=== PATIENT | male | born 1960 | race Caucasian/White ===

== ENCOUNTER 2021-02-15 20:06 | Emergency (ER) | payer MEDICARE, OTHER ==
[~2021-02-15 20:06] MED LIST: AEROCHAMBER1 EA XX; ASPIR 8181 MG PO; BRILINTA 90 MG90 MG PO; BUSPIRONE HCL7.5 MG PO; CRESTOR 10 MG T10 MG PO; ESCITALOPRAM OX20 MG PO; IMDUR ER TAB 6060 MG PO; LANTUS SOL100 UNIT/1 SQ; LEXAPRO20 MG PO; LIPITOR TAB 2020 MG PO; LISINOPRIL10 MG PO; METOPROLOL TART25 MG PO; NEURONTIN 100100 MG PO; NITROSTAT0.4 MG SL; NORVASC10 MG PO; NOVOLIN 70100 UNIT/1 SQ; NOVOLOG FL100 UNIT/1 SQ; PANTOPRAZOLE SO40 MG PO; PLAVIX 75 MG TA75 MG PO; PRINIVIL5 MG PO; PROVENTIL HFA6.7 GM INH; RANEXA1000 MG PO; RANEXA500 MG PO; TAMIFLU75 MG PO; XANAX 0.25 MG0.25 MG PO; ZETIA10 MG PO
[2021-02-15 21:48] LABS: RED BLOOD COUNT 4.46 M/UL (4.20-5.50); WHITE BLOOD COUNT 10.8 K/UL (4.5-11.0)
[2021-02-15 22:05] LABS: BUN/CREATININE RATIO 20 (0-10)
[2021-02-15] MEDS ORDERED: PERCOCET 5-3251 EACH PO (22:43)
== END 2021-02-15 23:07 | disposition home or self-care (01) ==
LOC: ER1 20:06
PROVIDERS: Family Medicine
DX: S62.112A Displaced fracture of triquetrum [cuneiform] bone, left wrist, initial encounter for closed fracture (principal); S00.83XA Contusion of other part of head, initial encounter; S00.12XA Contusion of left eyelid and periocular area, initial encounter; E11.9 Type 2 diabetes mellitus without complications; I25.10 Atherosclerotic heart disease of native coronary artery without angina pectoris; Z79.01 Long term (current) use of anticoagulants; Z79.899 Other long term (current) drug therapy; W22.8XXA Striking against or struck by other objects, initial encounter; Z79.02 Long term (current) use of antithrombotics/antiplatelets
CPT/HCPCS: 29125; 70450; 70486; 73110; 80048; 85025; 93005; 99284

== ENCOUNTER 2021-08-20 14:45 | Observation (INO) | payer MEDICARE ==
[~2021-08-20] VITALS: Ht 165.1 cm; Wt 81.9 kg
[~2021-08-20 14:45] MED LIST changes: +PERCOCET 5-3251 EACH PO
[2021-08-20 17:05] LABS: HEMOGLOBIN 14.1 gm/dl (14.0-17.5); RED BLOOD COUNT 4.62 M/UL (4.20-5.50); WHITE BLOOD COUNT 7.2 K/UL (4.5-11.0)
[2021-08-20 17:24] LABS: BUN/CREATININE RATIO 18 (0-10)
[2021-08-20] MEDS ORDERED: LISINOPRIL5 MG PO (20:04)
[2021-08-20] MEDS ORDERED: DULOXETINE HCL30 MG PO (20:04)
[2021-08-20] MEDS ORDERED: CLOPIDOGREL75 MG PO (20:05)
[2021-08-20] MEDS ORDERED: LOPRESSOR 25 MG25 MG PO (20:06)
[2021-08-20] MEDS ORDERED: ISOSORBIDE MONO60 MG PO (20:06)
[2021-08-20] MEDS ORDERED: ISOSORBIDE MON120 MG PO (20:07)
[2021-08-20] MEDS ORDERED: BUSPIRONE HCL15 MG PO (20:07)
[2021-08-21 04:31] LABS: HEMOGLOBIN 13.7 gm/dl (14.0-17.5); RED BLOOD COUNT 4.51 M/UL (4.20-5.50); WHITE BLOOD COUNT 7.1 K/UL (4.5-11.0)
[2021-08-21 04:57] LABS: BUN/CREATININE RATIO 21 (0-10)
[2021-08-21 21:37] LABS: RED BLOOD COUNT 4.59 M/UL (4.20-5.50)
[2021-08-21 21:39] LABS: WHITE BLOOD COUNT 9.7 K/UL (4.5-11.0)
[2021-08-21 21:59] LABS: BUN/CREATININE RATIO 16 (0-10)
[2021-08-22 03:35] LABS: HEMOGLOBIN 14.5 gm/dl (14.0-17.5); RED BLOOD COUNT 4.77 M/UL (4.20-5.50); WHITE BLOOD COUNT 8.3 K/UL (4.5-11.0)
[2021-08-22 04:21] LABS: BUN/CREATININE RATIO 19 (0-10)
[2021-08-22] MEDS ORDERED: CRESTOR 10 MG T10 MG PO (14:28)
[2021-08-22] MEDS ORDERED: DEX4 GLUCOSE4 GM PO (14:31)
== END 2021-08-22 16:01 | disposition home or self-care (01) ==
LOC: ER1 14:45 → PROG CARE 18:40 → OB 18:40 → CDU 20:21 → MED SURG 4 20:25 → PROG CARE 08-21 15:33
PROVIDERS: Emergency Medicine; Internal Medicine Interventional Cardiology; ADMIT Internal Medicine
PROC: 027135Z Dilation of Coronary Artery, Two Arteries with Two Drug-eluting Intraluminal Devices, Percutaneous Approach (ICD-10-PCS; principal; 2021-08-21)
PROC: 4A023N8 Measurement of Cardiac Sampling and Pressure, Bilateral, Percutaneous Approach (ICD-10-PCS; 2021-08-21)
PROC: B2111ZZ Fluoroscopy of Multiple Coronary Arteries using Low Osmolar Contrast (ICD-10-PCS; 2021-08-21)
PROC: B21F1ZZ Fluoroscopy of Other Bypass Graft using Low Osmolar Contrast (ICD-10-PCS; 2021-08-21)
DX: I25.110 Atherosclerotic heart disease of native coronary artery with unstable angina pectoris (principal); I10 Essential (primary) hypertension; E11.649 Type 2 diabetes mellitus with hypoglycemia without coma; E11.65 Type 2 diabetes mellitus with hyperglycemia; K21.9 Gastro-esophageal reflux disease without esophagitis; F41.9 Anxiety disorder, unspecified; F32.A Depression, unspecified; E78.5 Hyperlipidemia, unspecified; Z20.822 Contact with and (suspected) exposure to COVID-19; Z79.4 Long term (current) use of insulin; Z95.5 Presence of coronary angioplasty implant and graft; Z95.1 Presence of aortocoronary bypass graft; Z88.5 Allergy status to narcotic agent; Z91.048 Other nonmedicinal substance allergy status
CPT/HCPCS: ECHO; 36415; 71045; 80048; 80053; 80061; 82550; 82553; 82962; 83036; 83874; 83880; 84484; 85025; 85027; 85347; 93005; 93306; 96374; 99152; 99153; 99285; C1725; C1769; C1874; C1884; C1887; G0378; J0461; J1644; J2250; J3010; J7040; Q9967; U0002

== ENCOUNTER 2021-09-13 18:32 | Inpatient (IN) | payer MEDICARE ==
[~2021-09-13] VITALS: Ht 165.1 cm; Wt 83.0 kg
[~2021-09-13 18:32] MED LIST changes: +BUSPIRONE HCL15 MG PO; -BUSPIRONE HCL7.5 MG PO; +CLOPIDOGREL75 MG PO; +DEX4 GLUCOSE4 GM PO; +DULOXETINE HCL30 MG PO; +ISOSORBIDE MON120 MG PO; +ISOSORBIDE MONO60 MG PO; +LISINOPRIL5 MG PO; +LOPRESSOR 25 MG25 MG PO; -PANTOPRAZOLE SO40 MG PO; +PROTONIX40 MG PO
[2021-09-13 20:17] LABS: HEMOGLOBIN 13.1 gm/dl (14.0-17.5); RED BLOOD COUNT 4.3 M/UL (4.20-5.50); WHITE BLOOD COUNT 7.7 K/UL (4.5-11.0)
[2021-09-13 21:13] LABS: BUN/CREATININE RATIO 14 (0-10)
[2021-09-14 05:53] LABS: HEMOGLOBIN 12.8 gm/dl (14.0-17.5); RED BLOOD COUNT 4.29 M/UL (4.20-5.50); WHITE BLOOD COUNT 8.2 K/UL (4.5-11.0)
[2021-09-14 06:00] LABS: BUN/CREATININE RATIO 13 (0-10)
[2021-09-15 05:35] LABS: HEMOGLOBIN 12.7 gm/dl (14.0-17.5); RED BLOOD COUNT 4.23 M/UL (4.20-5.50)
[2021-09-15 06:46] LABS: BUN/CREATININE RATIO 19 (0-10)
== END 2021-09-15 15:48 | disposition short-term general hospital (02) | DRG 287 ==
LOC: ER1 18:32 → CDU 22:56 → PROG CARE 09-14 13:44
PROVIDERS: Emergency Medicine; Internal Medicine; ADMIT Internal Medicine
PROC: 4A023N7 Measurement of Cardiac Sampling and Pressure, Left Heart, Percutaneous Approach (ICD-10-PCS; principal; 2021-09-15)
PROC: B2111ZZ Fluoroscopy of Multiple Coronary Arteries using Low Osmolar Contrast (ICD-10-PCS; 2021-09-15)
PROC: B5181ZZ Fluoroscopy of Superior Vena Cava using Low Osmolar Contrast (ICD-10-PCS; 2021-09-15)
DX: I24.9 Acute ischemic heart disease, unspecified (principal); I10 Essential (primary) hypertension; Z20.822 Contact with and (suspected) exposure to COVID-19; E78.5 Hyperlipidemia, unspecified; I25.119 Atherosclerotic heart disease of native coronary artery with unspecified angina pectoris; E11.9 Type 2 diabetes mellitus without complications; K21.9 Gastro-esophageal reflux disease without esophagitis; Z95.5 Presence of coronary angioplasty implant and graft; Z79.01 Long term (current) use of anticoagulants; Z79.82 Long term (current) use of aspirin; Z79.4 Long term (current) use of insulin; Z88.5 Allergy status to narcotic agent; Z88.8 Allergy status to other drugs, medicaments and biological substances; Z95.1 Presence of aortocoronary bypass graft; Z82.49 Family history of ischemic heart disease and other diseases of the circulatory system; Z83.6 Family history of other diseases of the respiratory system
CPT/HCPCS: 36415; 71045; 80048; 80053; 82550; 82553; 82962; 83735; 83874; 83880; 84484; 85025; 85027; 85610; 85730; 93005; 93971; 99152; 99153; 99285; C1725; C1769; C1887; G0378; J0461; J0583; J1644; J1650; J2250; J2370; J2405; J3010; Q9967; U0002